=== PATIENT | female | born 2000 | race American Indian/Alaskan Native ===

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

== ENCOUNTER 2021-10-27 19:47 | Outpatient (CLI) | payer MEDICAID, OTHER ==
[2021-10-27 20:16] VITALS: BP 115/58
--- NOTE | 2021-10-28 11:31 | Ultrasound Report ---
ULTRASOUND OBSTETRIC LIMITED; ultrasound biophysical profile. INDICATION / CLINICAL INFORMATION: fall. Clinical Gestational Age (GA) in weeks, days: 32 weeks 0 days TECHNIQUE: Transabdominal. COMPARISON: None available. FINDINGS: HEART RATE (beats per minute): 146 AMNIOTIC FLUID INDEX (cm) = 11.0 (normal = 7-24 cm) PRESENTATION: A single cephalic fetus present. ADDITIONAL FINDINGS: None. BREATHING MOVEMENT = 2 GROSS BODY MOVEMENT = 2 TONE = 2 QUALITATIVE AMNIOTIC FLUID VOLUME = 2 TOTAL BIOPHYSICAL SCORE = 8/8 IMPRESSION: 1. Normal amniotic fluid index. 2. Normal biophysical profile. Signer Name: Breezy Heart II, MD Signed: 10/27/2021 11:22 PM Workstation Name: [id number][id number]
== END 2021-10-27 23:35 | disposition home or self-care (01) ==
LOC: TRG 19:47 → APU 19:48 → TRG 23:35
PROVIDERS: ATTEND Obstetrics & Gynecology
DX: O26.853 Spotting complicating pregnancy, third trimester (principal); Z3A.32 32 weeks gestation of pregnancy
CPT/HCPCS: 76815; 76816

== ENCOUNTER 2022-03-15 08:11 | Emergency (ER) | payer OTHER ==
--- NOTE | 2022-03-15 10:15 | Emergency Department Report ---
ED Upper Extremity Inj HPI - General Chief Complaint: Extremity Injury, Upper Stated Complaint: NAIL REMOVAL Time Seen by Provider: 03/15/22 10:05 Source: patient Mode of arrival: Ambulatory Limitations: No Limitations - History of Present Illness Initial Comments: This is a 22-year-old -[place] female who presents to the clinic with complaints of broken nails to multiple finger. Patient states she was getting her infant car seat out of the car around 7 AM this morning when her nails got stuck under the seat. Patient states her left fourth nail is completely loose and she cannot control the bleeding. Patient also reports multiple nails painful to touch with bleeding. Denies numbness or tingling, swelling, or weakness. MD Complaint: Injury to:: left, finger -: This morning Time: 07:00 Other Extremity Injury: Fingers: Left, Right (Third fourth and fifth finger nails) - Related Data Previous Rx's Medication Instructions Recorded Last Taken Type Ferrous Sulfate [Feosol 325 MG tab] 325 mg PO BID #60 tablet 09/21/17 Unknown Rx HYDROcodone/APAP 5-325 [[place] 1 each PO Q6H PRN #10 tablet 09/21/17 Unknown Rx 5-325 mg TAB] Ibuprofen [Motrin 600 MG tab] 600 mg PO Q6HR #30 tablet 09/21/17 Unknown Rx Vit-Fe Fumar-FA [ 1 each PO QDAY #30 tablet 09/21/17 Unknown Rx Vitamin] Ibuprofen [Motrin 800 MG tab] 800 mg PO Q8HR PRN #20 tablet 03/15/22 Unknown Rx Mupirocin [Bactroban 2%] 1 applic TP TID #1 tube 03/15/22 Unknown Rx cephALEXin [Keflex] 500 mg PO Q12HR #14 cap 03/15/22 Unknown Rx Allergies Allergy/AdvReac Type Severity Reaction Status Date / Time No Known Allergies Allergy Verified 03/15/22 08:32 ED Review of Systems ROS: Stated complaint: NAIL REMOVAL Other details as noted in HPI Constitutional: denies: chills, fever Respiratory: denies: cough, shortness of breath, wheezing Cardiovascular: denies: chest pain, palpitations Musculoskeletal: denies: back pain, joint swelling, arthralgia Skin: change in hair/nails. denies: rash, lesions Neurological: denies: headache, weakness, paresthesias Psychiatric: denies: anxiety, depression ED Past Medical Hx - Past Medical History Hx Hypertension: No Hx Congestive Heart Failure: No Hx Diabetes: No Hx Deep Vein Thrombosis: No Hx Renal Disease: No Hx Sickle Cell Disease: No Hx Seizures: No Hx Asthma: No Hx COPD: No Hx HIV: No Additional medical history: heart murmur - Social History Smoking Status: Never Smoker - Medications Home Medications: Home Medications Medication Instructions Recorded Confirmed Last Taken Type Ferrous Sulfate [Feosol 325 MG tab] 325 mg PO BID #60 tablet 09/21/17 Unknown Rx HYDROcodone/APAP 5-325 [[place] 1 each PO Q6H PRN #10 tablet 09/21/17 Unknown Rx 5-325 mg TAB] Ibuprofen [Motrin 600 MG tab] 600 mg PO Q6HR #30 tablet 09/21/17 Unknown Rx Vit-Fe Fumar-FA [ 1 each PO QDAY #30 tablet 09/21/17 Unknown Rx Vitamin] Ibuprofen [Motrin 800 MG tab] 800 mg PO Q8HR PRN #20 tablet 03/15/22 Unknown Rx Mupirocin [Bactroban 2%] 1 applic TP TID #1 tube 03/15/22 Unknown Rx cephALEXin [Keflex] 500 mg PO Q12HR #14 cap 03/15/22 Unknown Rx ED Physical Exam - General Limitations: No Limitations General appearance: alert, in no apparent distress - Respiratory Respiratory exam: Present: normal lung sounds bilaterally. Absent: respiratory distress - Cardiovascular Cardiovascular Exam: Present: regular rate, normal rhythm. Absent: systolic murmur, diastolic murmur, rubs, gallop - Expanded Upper Extremity Exam Left Hand L/R Back: 1 - complete nail avulsion, left 4th nailbed, serosanguineous discharge, TTP, mild swelling, sensation intact, no erythema 2 - Third phalanx nail bed, serosanguineous discharge, TTP, well approximated, sensation intact, FROM 3 - Right fourth phalanx nailbed well approximated, serosanguineous discharge, TTP, no erythema, no swelling, FROM Neuro motor exam: Present: wrist extension intact, thumb opposition intact, thumb IP flexion intact, thumb adduction intact, fingers 2-5 abduction intact Neurosensory exam: Present: radial nerve intact, ulnar nerve intact Vascular: Present: normal capillary refill, radial pulse (+2) - Neurological Exam Neurological exam: Present: alert, oriented X3 - Psychiatric Psychiatric exam: Present: normal affect, normal mood - Skin Skin exam: Present: warm, dry, intact, normal color. Absent: rash ED Course Vital Signs 03/15/22 08:31 Temperature 99.6 F Pulse Rate 78 Respiratory 18 Rate Blood Pressure 115/77 [Left] O2 Sat by Pulse 99 Oximetry - Procedure Description Procedures done: The area surrounding the left fourth nailbed was prepared and draped in the usual sterile manner. The nail was prepped with povidone-iodine solution. A standard digital block was performed, using a 5-mL syringe and a 24-gauge needle. 3 mL of lidocaine placed on each side of the finger for adequate anesthesia. The finger was rewashed with iodine solution. A hemostat was slid under the cuticle to separate the nail plate from the overlying proximal nail fold. The nail plate was partially lifted and gently pulled free with a hemostat. Vaseline impregnated gauze was applied followed by a bulky gauze dressing. Followup: The patient tolerated the procedure well without complications. Standard post-procedure care is explained and return precautions are given. ED Medical Decision Making - Medical Decision Making This is a 22 y.o. female presents with left 4th digit avulsion since this morning. Patient examined by me. Patient is non-toxic appearing and stable. Physical examination is susceptible of left fourth finger nail avulsion. Fingernail removal performed, reviewed notes. Tetanus given. Discharged home for outpatient treatment with keflex 500 mg po bid x 7 days. Iburprofen 800 mg po q6h #20 for pain. Discussed ER care plan with patient. Patient agreed with plan. F/U with PCP in 2-3 days. Critical care attestation.: If time is entered above; I have spent that time in minutes in the direct care of this critically ill patient, excluding procedure time. ED Disposition Clinical Impression: Pain around nail Fingernail avulsion, complete Qualifiers: Encounter type: initial encounter Qualified Code(s): S61.309A - Unspecified open wound of unspecified finger with damage to nail, initial encounter Disposition: HOME / SELF CARE / HOMELESS Is pt being admited?: No Condition: Stable Instructions: Fingernail or Toenail Removal, Adult, Care After Prescriptions: Mupirocin [Bactroban 2%] 1 applic TP TID #1 tube cephALEXin [Keflex] 500 mg PO Q12HR #14 cap Ibuprofen [Motrin 800 MG tab] 800 mg PO Q8HR PRN #20 tablet PRN Reason: Pain , Severe (7-10) Referrals: MAYUR CLEVELAND MD [Staff Physician] - 3-5 Days [facility] [Provider Group] - 3-5 Days Time of Disposition: 10:55
[2022-03-15] MEDS ORDERED: LIDOCAINE-MPF (1%) 10 MG/1 ML VIAL 5 ML INFILTRATI ONE (10:19)
[2022-03-15] MEDS ORDERED: NEOMY 3.5 MG/BACIT 400 UNITS/POLY B 5000 UNITS/GM OINT PACKET TP ONE (10:52)
[2022-03-15] MEDS ORDERED: TETANUS,DIPHTHERIA TOXOID ADULT 0.5 ML INJ IM ONE (11:00)
[2022-03-15 11:32] VITALS: BP 120/78
== END 2022-03-15 11:32 | disposition home or self-care (01) ==
LOC: ED 08:11
DX: S61.305A Unspecified open wound of left ring finger with damage to nail, initial encounter (principal); X58.XXXA Exposure to other specified factors, initial encounter; Y93.89 Activity, other specified; Y92.89 Other specified places as the place of occurrence of the external cause; Y99.8 Other external cause status
CPT/HCPCS: 11730; 90471; 90714; 99282; J3490; 96372